=== PATIENT | female | born 1950 | race Caucasian/White ===

== ENCOUNTER 2018-10-25 20:29 | Emergency (ER) | payer MEDICARE, OTHER ==
[~2018-10-25] VITALS: Ht 162.6 cm; Wt 93.2 kg
[~2018-10-25 20:29] MED LIST: FLUC150T41 PO; LEVO750T25 PO; METO-448 PO; [UNRECOGNIZED DRUG - CODE] PO
[2018-10-25 20:31] VITALS: Ht 162.6 cm; Wt 93.2 kg
[2018-10-25] MEDS ORDERED: KETOROLAC 30 MG INJ IM STA (22:49)
[2018-10-25] MEDS ORDERED: TRAM50TA2 PO (23:05)
[2018-10-25] MEDS ORDERED: IBUP-1542 PO (23:05)
--- NOTE | 2018-10-25 23:10 | ERD ---
ER Documentation Chief Complaint Chief Complaint L WRIST PAIN X'S 1 MONTH HPI 68-year-old female presents with left wrist pain for the last month. She denies any history of trauma although daughter states that she does use an iPad frequently. Initially they stated she had not had an x-ray and that her primary doctor give her an unspecified injection. She is having pain despite ibuprofen. After initial history of present illness family did present an MRI result performed 2 weeks ago which shows a complex triangular fibrocartilage tear with associated ulnocarpal joint effusion and medial subcutaneous edema. Presents in the left wrist Velcro brace with out thumb immobilized. ROS All systems reviewed and are negative except as per history of present illness. Medications Home Meds Active Scripts Ibuprofen* (Motrin*) 600 Mg Tab, 600 MG PO Q6, #20 TAB Prov:NNEKA COLE MD 10/25/18 Tramadol HCl (Tramadol HCl) 50 Mg Tablet, 50 MG PO Q4 PRN for PAIN, #20 TAB Prov:NNEKA COLE MD 10/25/18 Reported Medications Metoprolol Tartrate* (Lopressor*) 25 Mg Tab, 25 MG PO BID, TAB 10/02/14 Fluconazole* (Fluconazole*) 150 Mg Tablet, 150 MG PO DAILY, TAB 10/02/14 Darifenacin* (Enablex*) 7.5 Mg Tab.sr.24h, 7.5 MG PO DAILY, TAB 10/02/14 Levofloxacin* (Levaquin*) 750 Mg Tablet, 750 MG PO DAILY, TAB 10/02/14 Allergies Allergies: Coded Allergies: No Known Allergy (Unverified , 10/02/14) PMhx/Soc History of Surgery: No Anesthesia Reaction: No Hx Neurological Disorder: No Hx Respiratory Disorders: No Hx Cardiac Disorders: No Hx Psychiatric Problems: No Hx Miscellaneous Medical Probl: No Hx Alcohol Use: No Hx Substance Use: No Hx Tobacco Use: No FmHx Family History: No diabetes, No coronary disease, No other Physical Exam Vitals Vital Signs Date Temp Pulse Resp B/P (MAP) Pulse Ox O2 O2 Flow FiO2 Time Delivery Rate 10/25/18 97.4 80 18 169/85 96 20:31 (113) Physical Exam Const: No acute distress Head: Atraumatic Eyes: Normal Conjunctiva ENT: Normal External Ears, Nose and Mouth. Neck: Full range of motion. No meningismus. Resp: Clear to auscultation bilaterally Cardio: Regular rate and rhythm, no murmurs Abd: Soft, non tender, non distended. Normal bowel sounds Skin: No petechiae or rashes Back: No midline or flank tenderness Ext: No cyanosis, or edema. Tender at the left thumb extensor tendon without deficits or weakness. No warmth, erythema. Neur: Awake and alert Psych: Normal Mood and Affect Results 24 hrs Current Medications Medications Dose Sig/Scott Start Time Status Last (Trade) Ordered Route PRN Stop Time Admin Dose Reason Admin Ketorolac 30 mg ONCE STAT 10/25/18 DC Tromethamine IM 22:49 10/25/18 (Toradol) 22:56 650 mg ONCE ONCE 10/25/18 Acetaminophen PO 23:30 10/25/18 (Tylenol 23:31 Tab) Tramadol 50 mg ONCE ONCE 10/25/18 HCl PO 23:30 10/25/18 (Ultram) 23:31 Procedures/MDM Patient presents with diagnosed left wrist triangular fibrocartilage tear. She has no signs or symptoms to suggest septic arthritis, ischemia, fracture, dislocation. PCP was contacted by phone who was concerned that she was having pain despite [place] although patient states that she was just taking ibuprofen. She did also is not on proper splint without the thumb immobilized. PCP is concerned she may need inpatient pain management for her wrist pain. This condition appears to be amenable to outpatient treatment with proper specialist follow-up and immobilization. Patient was placed in a left thumb spica splint was neurovascular intact after splint. She was administered Tylenol and tramadol. She will discharged home with a prescription of ibuprofen, tramadol with reinforcement of hand surgery follow-up and treatment as she does have a specialist business card in hand. Patient will be advised to follow-up with specialist as directed does return for fevers, redness, new or worsening symptoms. Departure Diagnosis: Primary Impression: Pain in wrist Laterality: left Qualified Codes: M25.532 - Pain in left wrist Condition: Stable Patient Instructions: Tendonitis, Tendon Rupture, Finger Referrals: TEE HENLEY MD Additional Instructions: See hand surgeon for evaluation of cartilage tear in left wrist as directed. For fevers, redness, new symptoms. NNEKA COLE MD October 25, 2018 23:10
[2018-10-25] MEDS ORDERED: ACETAMINOPHEN 325 MG TAB PO ONE (23:30)
[2018-10-25] MEDS ORDERED: traMADol 50 MG TAB PO ONE (23:30)
[2018-10-26 00:04] VITALS: BP 178/77; PULSE 69; RESP 20
== END 2018-10-26 00:06 | disposition home or self-care (01) ==
LOC: FTE 20:29
DX: M25.532 Pain in left wrist (principal)

== ENCOUNTER 2018-11-04 21:23 | Observation (INO) | payer MEDICARE, OTHER ==
[~2018-11-04] VITALS: Ht 157.5 cm; Wt 92.5 kg
[~2018-11-04 21:23] MED LIST changes: +IBUP-1542 PO; +TRAM50TA2 PO
[2018-11-04 21:57] VITALS: PULSE 85
[2018-11-04 22:00] VITALS: BP 149/69; RESP 18
[2018-11-04] MEDS ORDERED: traMADol-APAP 37.5-325 1 TAB PO PRN (23:00)
[2018-11-04] MEDS ORDERED: LORAZEPAM 1 MG TAB PO ONE (23:00)
[2018-11-04] MEDS ORDERED: HYDROCORTISONE 100 MG INJ IV ONE (23:00)
[2018-11-04] MEDS ORDERED: HYDROCORTISONE 250 MG INJ IV ONE (23:00)
[2018-11-04] MEDS ORDERED: NITROGLYCERIN AEROSOL (4.9 GM) SL PRN (23:00)
[2018-11-04] MEDS ORDERED: ONDANSETRON 4 MG INJ IV PRN (23:00)
[2018-11-04] MEDS ORDERED: ARIPIPRAZOLE 5 MG TAB PO ONE (23:26)
[2018-11-04] MEDS: DEXTROSE 5%-0.9% NACL 1,000 ML IV SCH (23:52)
[2018-11-05] VITALS (12 sets, daily range): BP systolic 107–128; BP diastolic 55–60; PULSE 70–90; RESP 18–20; Ht 157.5 cm; Wt 92.5 kg
[2018-11-05] MEDS: METOPROLOL 25 MG TAB PO SCH ×3 (00:31→20:37)
[2018-11-05] MEDS ORDERED: ENOXAPARIN 100 MG/ML SYG SC SCH (02:30)
[2018-11-05] MEDS ORDERED: PANTOPRAZOLE 40 MG INJ IV SCH (06:00)
[2018-11-05] MEDS: PANTOPRAZOLE (EC) 40 MG TAB PO SCH (06:16)
[2018-11-05] MEDS ORDERED: HYDROCORTISONE 100 MG INJ IV ONE (07:00)
--- NOTE | 2018-11-05 08:36 | HP ---
Date/Time of Note Date/Time of Note DATE: 11/05/18 TIME: 08:36 Assessment/Plan VTE Prophylaxis SCD contraindicated: other (on) Pharmacological prophylaxis: LMWH Lines/Catheters IV Catheter Type (from Nrsg): Peripheral IV Central line still needed: No Assessment/Plan Assessment/Plan 1.CP- r/o mi 2.Epigastric pain after metropack and mohtrine use-GI eval 3.HTN out of contyrol 4.Severe pain in left wrist area 5.Morbid obesity 6.Anxiety with panic attack 7.Claustrophobia 8, [place] of knees, hips, shoulders 9.Dyslipidemia 10.Insomnia 11.hyponatremia Result Diagram: 11/04/18 2356 11/04/18 2356 Results 24hrs Laboratory Tests Test 11/04/18 23:56 11/05/18 00:30 11/05/18 06:54 White Blood Count 13.3 #H Red Blood Count 4.59 Hemoglobin 13.3 Hematocrit 39.9 Mean Corpuscular Volume 86.9 Mean Corpuscular Hemoglobin 29.0 Mean Corpuscular 33.3 Hemoglobin Concent Red Cell Distribution Width 13.3 Platelet Count 222 Mean Platelet Volume 11.0 #H Immature Granulocytes % 0.600 H Neutrophils % 64.7 Lymphocytes % 27.0 Monocytes % 6.4 Eosinophils % 0.8 Basophils % 0.5 Nucleated Red Blood Cells % 0.0 Immature Granulocytes # 0.080 H Neutrophils # 8.6 H Lymphocytes # 3.6 H Monocytes # 0.9 Eosinophils # 0.1 Basophils # 0.1 Nucleated Red Blood Cells # 0.0 Erythrocyte Sedimentation Rate 40 H Prothrombin Time 12.3 Prothrombin Time Ratio 1.0 INR International 0.90 Normalized Ratio Sodium Level 134 L Potassium Level 4.2 Chloride Level 102 Carbon Dioxide Level 25 Anion Gap 7 Blood Urea Nitrogen 17 Creatinine 0.58 Est Glomerular Filtrat > 60 Rate mL/min Glucose Level 122 Calcium Level 8.6 Magnesium Level 2.0 Iron Level 84 Total Iron Binding Capacity 240 L Percent Iron Saturation 35 Total Bilirubin 0.6 Direct Bilirubin 0.00 Indirect Bilirubin 0.6 Aspartate Amino 43 Transf (AST/SGOT) Alanine 14 Aminotransferase (ALT/SGPT) Alkaline Phosphatase 58 Troponin I < 0.012 < 0.012 C-Reactive Protein 2.5 H Total Protein 7.2 Albumin 4.0 Globulin 3.20 Albumin/Globulin Ratio 1.25 Amylase Level 86 Urine Color YELLOW Urine Clarity SLIGHTLY CLOUDY A Urine pH 5.0 Urine Specific [place] 1.017 Urine Ketones NEGATIVE Urine Nitrite NEGATIVE Urine Bilirubin NEGATIVE Urine Urobilinogen NEGATIVE Urine Leukocyte Esterase 3+ H Urine Microscopic RBC 2 Urine Microscopic WBC 55 H Urine Hemoglobin 1+ H Urine Glucose NEGATIVE Urine Total Protein NEGATIVE HPI/ROS Admit Date/Time Admit Date/Time November 04, 2018 at 21:23 Hx of Present Illness Substernal chest pain with pressure sensation accompanied with a severe shortness of breath excessive perspiration and a sensation of dying. I received a call from that her never was in this kind of bad condition that there is not enough air to breathe. I told him to call the paramedics and we will decide then what to do. However patient family decided to bring her to the office. At the time I was not in the office he was in [facility]. Patient was brought to the hospital and I arranged direct admission with the presumptive diagnosis of chest pain rule out LA along with the planned GI work-up by calling appropriate consult physicians. ROS Subjective hx not possible: pt critical Constitutional: chills, diaphoresis, nausea, weight change; No no complaints, No improved, No disoriented, No fatigue, No febrile, No poor po, No other Eyes: No no complaints, No pain, No discharge, No redness, No visual change, No other ENT: pain, dysphagia; No no complaints, No bleeding, No congestion, No discharge, No sore throat, No other Respiratory: cough, pleuritic pain, shortness of breath; No no complaints, No pain, No sputum, No wheezing, No other Cardiovascular: chest pain, lightheadedness, orthopenea, palpitations, paroxysmal nocturnal dyspnea; No no complaints, No edema, No other Gastrointestinal: constipation, decreased appetite, flatus, nausea, passing stool; No no complaints, No pain, No blood, No diarrhea, No vomiting, No other Genitourinary: dysuria, discharge, flank pain; No no complaints, No bleeding, No hematuria, No other Musculoskeletal: back pain, bone/joint pain, neck pain, restricted range of motion Skin: No no complaints, No bruising, No erythema, No laceration, No pruritis, No rash, No skin lesions, No other Neurologic: dizziness, headache; No no complaints, No confusion, No focal-weakness, No syncope, No seizure, No other Endocrine: No no complaints, No polyuria, No polydypsia, No dry skin, No temp intolerance, No weight change, No other Lymphatic: No no complaints, No adenopathy, No tender nodes, No lymphadema, No other Psychological: anxiety, depression; No no complaints, No nl mood/affect, No confusion, No suicidal, No other Immunologic: No no complaints, No immunodeficiency, No pruritis, No rhinitis, No urticaria, No other PMH/Family/Social Past Medical History Medical History: angina, congestive heart failure, coronary artery disease, diabetes, diverticulitis, GERD, high cholesterol, hypertension, irritable bowel syndrome, urinary tract infection Medications Current Medications Ondansetron HCl (Zofran Inj) 4 mg Q6H PRN IV NAUSEA AND/OR VOMITING; Start 11/04/18 at 23:00 Dextrose/Sodium Chloride 1,000 ml @ 60 mls/hr [id number] IV Last administered on 11/04/18at 23:52; Admin Dose 60 MLS/HR; Start 11/04/18 at 23:00 Nitroglycerin (Nitroglycerin ([place])) 1 spray Q5M PRN SL ANGINA; Start 11/04/18 at 23:00 Darifenacin (Enablex) 15 mg DAILY PO ; Start 11/05/18 at 09:00; Status UNV Tramadol HCl (Ultracet) 1 tab Q6H PRN PO MODERATE PAIN LEVEL 4-6; Start 11/04/18 at 23:00 Metoprolol Tartrate (Lopressor) 25 mg BID PO Last administered on 11/05/18at 00:31; Admin Dose 25 MG; Start 11/04/18 at 23:00 Lidocaine (Lidoderm) 1 patch DAILY TD ; Start 11/05/18 at 09:00 Atorvastatin Calcium (Lipitor) 20 mg HS PO ; Start 11/05/18 at 21:00 Enalapril Maleate (Vasotec) 2.5 mg DAILY PO ; Start 11/05/18 at 09:00 Pantoprazole (Protonix Tab) 40 mg DAILY@06 PO Last administered on 11/05/18at 06:16; Admin Dose 40 MG; Start 11/05/18 at 06:00 Enoxaparin Sodium (Lovenox) 95 mg Q24H SC ; Start 11/05/18 at 09:00 Coded Allergies: No Known Allergy (Unverified , 10/02/14) Family History Significant Family History: heart disease Social History Alcohol Use: none Smoking Status: Never smoker Drug Use: none Exam/Review of Systems Vital Signs Vitals Vital Signs Date Temp Pulse Resp B/P (MAP) Pulse Ox O2 O2 Flow FiO2 Time Delivery Rate 11/05/18 70 08:21 11/05/18 98.0 20 124/58 92 07:30 (80) 11/05/18 Room Air 04:00 Intake and Output 11/04/18 11/04/18 11/05/18 1515:00 23:00 07:00 IntakeIntake Total 240 ml BalanceBalance 240 ml Exam Constitutional: alert, oriented, well developed, distress, other (Anxious tense perseverating unable to communicate smoothly due to of high intense stressful condition with multiple family members present in the exam room.) Psych: anxiety, depression, other (Patient feels that the room was very narrow and that the johnson are pressing her she was expressed with thoughts that patient there are too many people except for her own children that she is unable to tolerate the crowds she cannot stay in the close spaces like elevators or just narrow place corridors. According to her she is feeling well with bad when the space is not enough to the sensation of suffocation.); No no complaints, No nl mood/affect, No confusion, No suicidal Head: normocephalic, atraumatic Eyes: EOMI, nl lids, PERRL; No nl conjunctiva, No nl sclera, No icteric, No fundi, disc, No other ENMT: No nl external ears & nose, No nl lips & teeth, No nl nasal mucosa & septum, No mucosa pink and moist, No intubated, No tympanic membranes, No other Neck: jvd, bruits, thyromegaly, nuchal rigidity Respiratory: No clear to auscultation, No normal air movement, No congested cough, No crackles/rales, No diminished breath sounds, No intercostal retraction, No labored breathing, No respirations, No tactile fremitus, No wheezing, No other Cardiovascular: regular rate and rhythm, bruits, edema, systolic murmur; No nl pulses, No diastolic murmur, No gallop, No irregular rhythm, No jugular venous distention (JVD), No murmurs/extra sounds, No rub, No S3, No S4, No other Gastrointestinal: soft, nl liver, spleen, bowel sounds, distended, tender, other (Tenderness in the epigastric region and left upper quadrant and left lower quadrant with no rebound. No ascitic fluid was detected.); No non-tender, No ascites, No firm, No hepatomegaly, No mass, No rebound or guarding, No splenomegaly, No surgical scars Genitourinary - Female: No nl adnexae, No nl external genitalia, No CMT, No CVA tenderness, No uterus, No other Musculoskeletal: joint tenderness, muscle tone, muscle weakness; No nl extremities to inspection, No nl gait and stance, No range of motion, No spine non-tender, No swelling, No other Extremities: normal pulses, edema Neurological: SOFTWARE BUSINESS ANALYST II-XII intact, nl speech (There is pressure in his speech anxious tense perseverating.), numbness, reflexes, other (Feels numbness of extremities according to her she does not feel the tips of the fingers.); No nl mental status, No nl strength, No confused, No DTR's symmetric, No focal weakness, No lethargic, No unresponsive Skin: No nl turgor, No rash or lesions, No diaphoresis, No ecchymosis, No laceration, No puncture, No other Lymph: No nl lymph nodes, No enlarged, No nontender, No other RAMILA FLOWERS MD November 05, 2018 08:36
[2018-11-05] MEDS: LIDOCAINE 5% PATCH TD SCH (08:50)
[2018-11-05] MEDS: ENALAPRIL 2.5 MG TAB PO SCH (08:51)
[2018-11-05] MEDS: ENOXAPARIN 100 MG/ML SYG SC SCH (08:58)
[2018-11-05] MEDS ORDERED: DARIFENACIN 7.5 MG PO SCH (09:00)
[2018-11-05] MEDS: LEVOFLOXACIN 750MG/D5W (PMX) 150 ML IVPB SCH (09:45)
--- NOTE | 2018-11-05 12:13 | CONS ---
DATE OF ADMISSION: 11/04/2018 DATE OF CONSULTATION: 11/05/2018 TYPE OF CONSULTATION: Pulmonary. REASON FOR CONSULTATION: Shortness of breath. Thank you, Dr. Flowers for this consultation. HISTORY OF PRESENT ILLNESS: This is a 68-year-old lady with a several-day history of chest pain, epi gastric in nature with mild radiation to the neck, associated dyspnea but no hemoptysis, hematemesis, no recent travel history. No prior history of significant respiratory problems and in addition, she is a nonsmoker. Chest pain was intermittent in nature. Currently, the patient states this has reso lved. She appears comfortable. PAST MEDICAL HISTORY: Hyperlipidemia, hypertension. MEDICATIONS: Per chart. ALLERGIES: None. SOCIAL HISTORY: She is a current nonsmoker, no alcohol, no history of drug use. FAMILY HISTORY: Noncontributory. SYSTEMS REVIEW: A 12-point review of systems was negative other than that mentioned above. PHYSICAL EXAMINATION: GENERAL: Well-nourished, well-developed lady, comfortable at rest, no acute distress. VITAL SIGNS: Currently afebrile, pulse is 70, blood pressure 117/58, O2 saturation 93% on room air. NECK: Supple. No JVD or lymphadenopathy. CARDIAC: S1, S2, no added sounds or murmurs. CHEST: Diminished air entry bilaterally, but no rales or wheezes. ABDOMEN: Soft, nontender. No guarding or rebound. EXTREMITIES: No cyanosis, clubbing, edema. NEUROLOGIC: Grossly intact. No focal deficits. LABORATORY DATA: White count 13.3, hemoglobin 13.3, platelets of 222. Chemistry: BUN 17, creatinin e 0.58. INR 0.9. DIAGNOSTIC DATA: Chest x-ray was reviewed, shows low lung volumes, but no infiltrates or effusions. IMPRESSION AND PLAN: 1. Likely probable tracheobronchitis. 2. Chest discomfort, rule out coronary ischemia. 3. Probable obstructive sleep apnea given her obesity and body habitus. RECOMMENDATIONS: 1. Bronchodilator treatment. 2. Outpatient sleep study. 3. Outpatient pulmonary function testing. 4. Cardiology evaluation to rule out coronary ischemia. Dictated By: DONTE ALDANA/KAVITHA Conf#: [id number] DID#: [id number] CC: RAMILA FLOWERS MD;*EndCC*
[2018-11-05] MEDS: DEXTROSE 5%-0.9% NACL 1,000 ML IV SCH (16:27)
[2018-11-05] MEDS: [UNRECOGNIZED DRUG - REMARK] XX SCH (18:00)
--- NOTE | 2018-11-05 19:53 | CONS ---
Assessment/Plan Assessment/Plan Hospital Course (Demo Recall) Assessment: Atypical chest pain - appears to be in setting of anxiety and agitation related to corticosteroid use; ruled out for myocardial infarction Hypertension Recommendations: -continue outpatient metoprolol 25mg BID -no additional inpatient cardiac work up at this time -consider cardiac stress testing as outpatient Consultation Date/Type/Reason Admit Date/Time November 04, 2018 at 21:23 Type of Consult Cardiology Reason for Consultation chest pain Date/Time of Note DATE: 11/05/18 TIME: 19:48 Hx of Present Illness The patient is a 68 year-old female who presented with five days of intermittent chest pressure, epigastric burning, shortness of breath, and agitation. She recently saw an orthopedic surgeon for right wrist pain and was diagnosed with tenonitis. She received an injection and was started on a course of methylprednisolone. Her presenting symptoms started shortly after taking the steroids. EKG showed sinus rhythm with nonspecific T wave changes. Troponins have been negative x 3. She denies recurrent chest pain since hospital admission. 14 point review of systems negative other than per HPI. Past Medical History Medical History: hypertension Home Meds Active Scripts Ibuprofen* (Motrin*) 600 Mg Tab, 600 MG PO Q6, #20 TAB Prov:NNEKA COLE MD 10/25/18 Tramadol HCl (Tramadol HCl) 50 Mg Tablet, 50 MG PO Q4 PRN for PAIN, #20 TAB Prov:NNEKA COLE MD 10/25/18 Reported Medications Metoprolol Tartrate* (Lopressor*) 25 Mg Tab, 25 MG PO BID, TAB 10/02/14 Fluconazole* (Fluconazole*) 150 Mg Tablet, 150 MG PO DAILY, TAB 10/02/14 Darifenacin* (Enablex*) 7.5 Mg Tab.sr.24h, 7.5 MG PO DAILY, TAB 10/02/14 Levofloxacin* (Levaquin*) 750 Mg Tablet, 750 MG PO DAILY, TAB 10/02/14 Medications Current Medications Ondansetron HCl (Zofran Inj) 4 mg Q6H PRN IV NAUSEA AND/OR VOMITING; Start 11/04/18 at 23:00 Dextrose/Sodium Chloride 1,000 ml @ 60 mls/hr [id number] IV Last administered on 11/05/18at 16:27; Admin Dose 60 MLS/HR; Start 11/04/18 at 23:00 Nitroglycerin (Nitroglycerin ([place])) 1 spray Q5M PRN SL ANGINA; Start 11/04/18 at 23:00 Darifenacin (Enablex) 15 mg DAILY PO ; Start 11/05/18 at 09:00; Status UNV Tramadol HCl (Ultracet) 1 tab Q6H PRN PO MODERATE PAIN LEVEL 4-6; Start 11/04/18 at 23:00 Metoprolol Tartrate (Lopressor) 25 mg BID PO Last administered on 11/05/18 08:51; Admin Dose 25 MG; Start 11/04/18 at 23:00 Lidocaine (Lidoderm) 1 patch DAILY TD Last administered on 11/05/18 08:50; Admin Dose 1 PATCH; Start 11/05/18 at 09:00 Atorvastatin Calcium (Lipitor) 20 mg HS PO ; Start 11/05/18 at 21:00 Enalapril Maleate (Vasotec) 2.5 mg DAILY PO Last administered on 11/05/18 08:51; Admin Dose 2.5 MG; Start 11/05/18 at 09:00 Pantoprazole (Protonix Tab) 40 mg DAILY@06 PO Last administered on 11/05/18 06:16; Admin Dose 40 MG; Start 11/05/18 at 06:00 Enoxaparin Sodium (Lovenox) 95 mg Q24H SC Last administered on 11/05/18 08:58; Admin Dose 95 MG; Start 11/05/18 at 09:00 Levofloxacin/ Dextrose 150 ml @ 100 mls/hr Q24H IVPB Last administered on 11/05/18at 09:45; Admin Dose 100 MLS/HR; Start 11/05/18 at 09:00; Stop 11/07/18 at 08:00 Miscellaneous Information (*Order Clarification Bulletin) DARIFENACIN (XR) 7.5 MG TAB: PLE... Q8H XX Last administered on 11/05/18 18:00; Admin Dose 1 EA; Start 11/05/18 at 18:00 Allergies: Coded Allergies: No Known Allergy (Unverified , 10/02/14) Past Surgical History Past Surgical Hx: no surgical history Family History Significant Family History: no pertinent family hx Social History Smoking Status: Never smoker Exam/Review of Systems Vital Signs Vitals Vital Signs Date Temp Pulse Resp B/P (MAP) Pulse Ox O2 O2 Flow FiO2 Time Delivery Rate 11/05/18 73 16:18 11/05/18 98.0 18 128/60 93 15:27 (82) 11/05/18 Room Air 04:00 Intake and Output 11/04/18 11/04/18 11/05/18 1515:00 23:00 07:00 IntakeIntake Total 240 ml BalanceBalance 240 ml Exam Constitutional: alert, well developed Psych: no complaints, nl mood/affect Head: normocephalic, atraumatic Eyes: nl conjunctiva, nl lids ENMT: nl external ears & nose, nl nasal mucosa & septum Neck: supple, non-tender Respiratory: clear to auscultation Cardiovascular: regular rate and rhythm Gastrointestinal: soft, non-tender Musculoskeletal: nl extremities to inspection Extremities: No cyanosis, No clubbing, No edema Neurological: nl mental status, nl speech Labs Result Diagram: 11/04/18 2356 11/04/18 2356 Results 24hrs Laboratory Tests Test 11/04/18 23:56 11/05/18 00:30 11/05/18 06:54 11/05/18 12:24 White Blood Count 13.3 #H Red Blood Count 4.59 Hemoglobin 13.3 Hematocrit 39.9 Mean Corpuscular 86.9 Volume Mean Corpuscular 29.0 Hemoglobin Mean Corpuscular 33.3 Hemoglobin Concen t Red Cell 13.3 Distribution Width Platelet Count 222 Mean Platelet 11.0 #H Volume Immature 0.600 H Granulocytes % Neutrophils % 64.7 Lymphocytes % 27.0 Monocytes % 6.4 Eosinophils % 0.8 Basophils % 0.5 Nucleated Red 0.0 Blood Cells % Immature 0.080 H Granulocytes # Neutrophils # 8.6 H Lymphocytes # 3.6 H Monocytes # 0.9 Eosinophils # 0.1 Basophils # 0.1 Nucleated Red 0.0 Blood Cells # Erythrocyte 40 H Sedimentation Rate Prothrombin Time 12.3 Prothrombin Time 1.0 Ratio INR International 0.90 Normalized Ratio Sodium Level 134 L Potassium Level 4.2 Chloride Level 102 Carbon Dioxide 25 Level Anion Gap 7 Blood Urea 17 Nitrogen Creatinine 0.58 Est Glomerular > 60 Filtrat Rate mL/min Glucose Level 122 Calcium Level 8.6 Magnesium Level 2.0 Iron Level 84 Total Iron 240 L Binding Capacity Percent Iron 35 Saturation Total Bilirubin 0.6 Direct Bilirubin 0.00 Indirect 0.6 Bilirubin Aspartate Amino 43 Transf (AST/SGOT) Alanine 14 Aminotransferase (ALT/SGPT) Alkaline 58 Phosphatase Troponin I < 0.012 < 0.012 < 0.012 C-Reactive 2.5 H Protein Total Protein 7.2 Albumin 4.0 Globulin 3.20 Albumin/Globulin 1.25 Ratio Amylase Level 86 Urine Color YELLOW Urine Clarity SLIGHTLY CLOUDY A Urine pH 5.0 Urine Specific 1.017 [place] Urine Ketones NEGATIVE Urine Nitrite NEGATIVE Urine Bilirubin NEGATIVE Urine NEGATIVE Urobilinogen Urine Leukocyte 3+ H Esterase Urine Microscopic 2 RBC Urine Microscopic 55 H WBC Urine Hemoglobin 1+ H Urine Glucose NEGATIVE Urine Total NEGATIVE Protein Medications Medications Current Medications Ondansetron HCl (Zofran Inj) 4 mg Q6H PRN IV NAUSEA AND/OR VOMITING; Start 11/04/18 at 23:00 Dextrose/Sodium Chloride 1,000 ml @ 60 mls/hr [id number] IV Last administered on 11/05/18at 16:27; Admin Dose 60 MLS/HR; Start 11/04/18 at 23:00 Nitroglycerin (Nitroglycerin ([place])) 1 spray Q5M PRN SL ANGINA; Start 11/04/18 at 23:00 Darifenacin (Enablex) 15 mg DAILY PO ; Start 11/05/18 at 09:00; Status UNV Tramadol HCl (Ultracet) 1 tab Q6H PRN PO MODERATE PAIN LEVEL 4-6; Start 11/04/18 at 23:00 Metoprolol Tartrate (Lopressor) 25 mg BID PO Last administered on 11/05/18at 08:51; Admin Dose 25 MG; Start 11/04/18 at 23:00 Lidocaine (Lidoderm) 1 patch DAILY TD Last administered on 11/05/18at 08:50; Admin Dose 1 PATCH; Start 11/05/18 at 09:00 Atorvastatin Calcium (Lipitor) 20 mg HS PO ; Start 11/05/18 at 21:00 Enalapril Maleate (Vasotec) 2.5 mg DAILY PO Last administered on 11/05/18at 08:51; Admin Dose 2.5 MG; Start 11/05/18 at 09:00 Pantoprazole (Protonix Tab) 40 mg DAILY@06 PO Last administered on 11/05/18at 06:16; Admin Dose 40 MG; Start 11/05/18 at 06:00 Enoxaparin Sodium (Lovenox) 95 mg Q24H SC Last administered on 11/05/18at 08:58; Admin Dose 95 MG; Start 11/05/18 at 09:00 Levofloxacin/ Dextrose 150 ml @ 100 mls/hr Q24H IVPB Last administered on at 09:45; Admin Dose 100 MLS/HR; Start 11/05/18 at 09:00; Stop 11/07/18 at 08:00 Miscellaneous Information (*Order Clarification Bulletin) DARIFENACIN (XR) 7.5 MG TAB: PLE... Q8H XX Last administered on 11/05/18at 18:00; Admin Dose 1 EA; Start 11/05/18 at 18:00 OLIVIER DELA CRUZ MD November 05, 2018 19:53
[2018-11-05] MEDS ORDERED: ATORVASTATIN 20 MG TAB PO SCH (21:00)
[2018-11-06] VITALS (8 sets, daily range): BP systolic 112–142; BP diastolic 58–67; PULSE 66–84; RESP 18–20
[2018-11-06] MEDS: [UNRECOGNIZED DRUG - REMARK] XX SCH ×2 (02:00→09:03)
[2018-11-06] MEDS: PANTOPRAZOLE (EC) 40 MG TAB PO SCH (05:59)
[2018-11-06] MEDS: DEXTROSE 5%-0.9% NACL 1,000 ML IV SCH (08:20)
[2018-11-06] MEDS: LIDOCAINE 5% PATCH TD SCH (08:45)
[2018-11-06] MEDS: ENALAPRIL 2.5 MG TAB PO SCH (08:46)
[2018-11-06] MEDS: LEVOFLOXACIN 750MG/D5W (PMX) 150 ML IVPB SCH (08:46)
[2018-11-06] MEDS: METOPROLOL 25 MG TAB PO SCH (08:47)
[2018-11-06] MEDS: ENOXAPARIN 100 MG/ML SYG SC SCH (09:02)
[2018-11-06] MEDS ORDERED: AL HYDROX/MG HYDROX/SIMETH 30 ML CUP PO PRN (10:30)
--- NOTE | 2018-11-06 11:17 | CONS ---
Assessment/Plan Assessment/Plan Hospital Course (Demo Recall) Assessment: Atypical chest pain - appears to be in setting of anxiety and agitation related to corticosteroid use, ? gastrointestinal component; ruled out for myocardial infarction Hypertension Recommendations: -continue outpatient metoprolol 25mg BID -no additional inpatient cardiac work up at this time -consider cardiac stress testing as outpatient Consultation Date/Type/Reason Admit Date/Time November 04, 2018 at 21:23 Initial Consult Date Type of Consult Cardiology Date/Time of Note DATE: 11/06/18 TIME: 11:16 24 HR Interval Summary Free Text/Dictation No acute events. Complaining of burning sensation in the chest, possibly related to eating. Detailed Summary Additional Comments 14 point review of systems without changes. Exam/Review of Systems Vital Signs Vitals Vital Signs Date Temp Pulse Resp B/P (MAP) Pulse Ox O2 O2 Flow FiO2 Time Delivery Rate 11/06/18 72 08:00 11/06/18 98.2 18 142/67 96 07:24 (92) 11/05/18 Room Air 04:00 Intake and Output 11/05/18 11/05/18 11/06/18 1515:00 23:00 07:00 IntakeIntake Total 600 ml 1300 ml OutputOutput Total 650 ml BalanceBalance -50 ml 1300 ml Exam Exam Constitutional: alert, well developed Psych: no complaints, nl mood/affect Head: normocephalic, atraumatic Eyes: nl conjunctiva, nl lids ENMT: nl external ears & nose, nl nasal mucosa & septum Neck: supple, non-tender Respiratory: clear to auscultation Cardiovascular: regular rate and rhythm Gastrointestinal: soft, non-tender Musculoskeletal: nl extremities to inspection Extremities: No cyanosis, No clubbing, No edema Neurological: nl mental status, nl speech Labs Result Diagram: 11/04/18 2356 11/04/18 2356 Results 24hrs Laboratory Tests Test 11/05/18 12:24 Troponin I < 0.012 Medications Medications Current Medications Ondansetron HCl (Zofran Inj) 4 mg Q6H PRN IV NAUSEA AND/OR VOMITING; Start 11/04/18 at 23:00 Dextrose/Sodium Chloride 1,000 ml @ 60 mls/hr [id number] IV Last administered on 11/05/18at 16:27; Admin Dose 60 MLS/HR; Start 11/04/18 at 23:00 Nitroglycerin (Nitroglycerin ([place])) 1 spray Q5M PRN SL ANGINA; Start 11/04/18 at 23:00 Darifenacin (Enablex) 15 mg DAILY PO ; Start 11/05/18 at 09:00; Status UNV Tramadol HCl (Ultracet) 1 tab Q6H PRN PO MODERATE PAIN LEVEL 4-6; Start 11/04/18 at 23:00 Metoprolol Tartrate (Lopressor) 25 mg BID PO Last administered on 11/06/18 08:47; Admin Dose 25 MG; Start 11/04/18 at 23:00 Lidocaine (Lidoderm) 1 patch DAILY TD Last administered on 11/06/18 08:45; Admin Dose 1 PATCH; Start 11/05/18 at 09:00 Atorvastatin Calcium (Lipitor) 20 mg HS PO Last administered on 11/05/18 20:37; Admin Dose 20 MG; Start 11/05/18 at 21:00 Enalapril Maleate (Vasotec) 2.5 mg DAILY PO Last administered on 11/06/18 08:46; Admin Dose 2.5 MG; Start 11/05/18 at 09:00 Pantoprazole (Protonix Tab) 40 mg DAILY@06 PO Last administered on 11/06/18 05:59; Admin Dose 40 MG; Start 11/05/18 at 06:00 Enoxaparin Sodium (Lovenox) 95 mg Q24H SC Last administered on 11/06/18 09:02; Admin Dose 95 MG; Start 11/05/18 at 09:00 Levofloxacin/ Dextrose 150 ml @ 100 mls/hr Q24H IVPB Last administered on 11/06/18 08:46; Admin Dose 100 MLS/HR; Start 11/05/18 at 09:00; Stop 11/07/18 at 08:00 Miscellaneous Information (*Order Clarification Bulletin) DARIFENACIN (XR) 7.5 MG TAB: PLE... Q8H XX Last administered on 11/05/18 18:00; Admin Dose 1 EA; Start 11/05/18 at 18:00 Al Hydrox/Mg Hydrox/Simethicone (Mag-Al Plus) 30 ml Q6H PRN PO GASTROINTESTINAL UPSET Last administered on 11/06/18 10:59; Admin Dose 30 ML; Start 11/06/18 at 10:30 OLIVIER DELA CRUZ MD November 06, 2018 11:17
--- NOTE | 2018-11-06 11:41 | CONS ---
Consult Date/Type/Reason Admit Date/Time November 04, 2018 at 21:23 Initial Consult Date Type of Consult Pulmonary Date/Time of Note DATE: 11/06/18 TIME: 11:40 Subjective Breathing better today no respiratory distress. Objective Vital Signs Date Temp Pulse Resp B/P (MAP) Pulse Ox O2 O2 Flow FiO2 Time Delivery Rate 11/06/18 97.7 67 18 130/63 96 11:37 (85) 11/05/18 Room Air 04:00 Intake and Output 11/05/18 11/05/18 11/06/18 1515:00 23:00 07:00 IntakeIntake Total 600 ml 1300 ml OutputOutput Total 650 ml BalanceBalance -50 ml 1300 ml Exam GENERAL: Well-nourished well-developed lady comfortable at rest no acute distress VITAL SIGNS: per chart NECK: Supple. No JVD or lymphadenopathy. CARDIAC EXAM: S1, S2. No added sounds or murmurs. CHEST: clear bilaterally, No added sounds, rales or wheezes ABDOMEN: Soft, nontender. No guarding or rebound. EXTREMITIES: No cyanosis, clubbing or edema. NEUROLOGIC: Generalized weakness. No focal deficits. Results/Medications Result Diagram: 11/04/18 2356 11/04/18 2356 Results 24 hrs Laboratory Tests Test 11/05/18 12:24 Troponin I < 0.012 Medications Current Medications Ondansetron HCl (Zofran Inj) 4 mg Q6H PRN IV NAUSEA AND/OR VOMITING; Start 11/04/18 at 23:00 Dextrose/Sodium Chloride 1,000 ml @ 60 mls/hr [id number] IV Last administered on 11/05/18at 16:27; Admin Dose 60 MLS/HR; Start 11/04/18 at 23:00 Nitroglycerin (Nitroglycerin ([place])) 1 spray Q5M PRN SL ANGINA; Start 11/04/18 at 23:00 Darifenacin (Enablex) 15 mg DAILY PO ; Start 11/05/18 at 09:00; Status UNV Tramadol HCl (Ultracet) 1 tab Q6H PRN PO MODERATE PAIN LEVEL 4-6; Start 11/04/18 at 23:00 Metoprolol Tartrate (Lopressor) 25 mg BID PO Last administered on 11/06/18at 08:47; Admin Dose 25 MG; Start 11/04/18 at 23:00 Lidocaine (Lidoderm) 1 patch DAILY TD Last administered on 11/06/18 08:45; Admin Dose 1 PATCH; Start 11/05/18 at 09:00 Atorvastatin Calcium (Lipitor) 20 mg HS PO Last administered on 11/05/18 20:37; Admin Dose 20 MG; Start 11/05/18 at 21:00 Enalapril Maleate (Vasotec) 2.5 mg DAILY PO Last administered on 11/06/18 08:4 6; Admin Dose 2.5 MG; Start 11/05/18 at 09:00 Pantoprazole (Protonix Tab) 40 mg DAILY@06 PO Last administered on 11/06/18 05:59; Admin Dose 40 MG; Start 11/05/18 at 06:00 Enoxaparin Sodium (Lovenox) 95 mg Q24H SC Last administered on 11/06/18 09:02; Admin Dose 95 MG; Start 11/05/18 at 09:00 Levofloxacin/ Dextrose 150 ml @ 100 mls/hr Q24H IVPB Last administered on 11/06/18 08:46; Admin Dose 100 MLS/HR; Start 11/05/18 at 09:00; Stop 11/07/18 at 08:00 Miscellaneous Information (*Order Clarification Bulletin) DARIFENACIN (XR) 7.5 MG TAB: PLE... Q8H XX Last administered on 11/05/18 18:00; Admin Dose 1 EA; Start 11/05/18 at 18:00 Al Hydrox/Mg Hydrox/Simethicone (Mag-Al Plus) 30 ml Q6H PRN PO GASTROINTESTINAL UPSET Last administered on 11/06/18at 10:59; Admin Dose 30 ML; Start 11/06/18 at 10:30 Assessment/Plan Hospital Course (Demo Recall) IMPRESSION AND PLAN: 1. Likely probable tracheobronchitis. 2. Chest discomfort, rule out coronary ischemia. 3. Probable obstructive sleep apnea given her obesity and body habitus. RECOMMENDATIONS: 1. Bronchodilator treatment. 2. Outpatient sleep study. 3. Outpatient pulmonary function testing. 4. Cardiology evaluation to rule out coronary ischemia. DC planning okay from pulmonary standpoint DONTE STEVENSON MD, [facility] November 06, 2018 11:41
--- NOTE | 2018-11-06 22:50 | PDOCDIS ---
Discharge Instructions DIAGNOSIS Discharge Diagnosis 1.CP- mi was ruled out. Due to AMA leaving the hospital exam was not completed. 2.Epigastric pain after metropack and mohtrine use-GI eval-refused to work-up left AGAINST MEDICAL ADVICE. 3.HTN out of control 4.Severe pain in left wrist area-persists; Lidoderm patch helped about 30%. 5.Morbid obesity 6.Anxiety with panic attack 7.Claustrophobia 8, Rigo of knees, hips, shoulders 9.Dyslipidemia 10.Insomnia 11.hyponatremia CONDITION [id number] Patient Condition: [id number] Guarded HOME CARE INSTRUCTIONS: [id number] Diet Instructions: [id number] Reduced Sodium ACTIVITY: [id number] Activity Restrictions: [id number] Slowly Increase Activity [id number] Bathing Restrictions: [id number] Shower FOLLOW UP/APPOINTMENTS Follow-up Plan To be seen by talk show host in 3 days. To see me in 2 days. Family took patient home AGAINST MEDICAL ADVICE. SCHOOL/WORK RELEASE May return to School/Work with: noRAMILA MONTEIRO MD November 06, 2018 22:50
--- NOTE | 2018-11-06 22:55 | DS ---
Date/Time of Note Date/Time of Note DATE: 11/06/18 TIME: 22:50 Discharge Summary Admission/Discharge Info Admit Date/Time November 04, 2018 at 21:23 Discharge Date/Time November 06, 2018 at 16:09 Discharge Diagnosis 1.CP- mi was ruled out. Due to AMA leaving the hospital exam was not completed. 2.Epigastric pain after metropack and mohtrine use-GI eval-refused to work-up left AGAINST MEDICAL ADVICE. 3.HTN out of control 4.Severe pain in left wrist area-persists; Lidoderm patch helped about 30%. 5.Morbid obesity 6.Anxiety with panic attack 7.Claustrophobia 8, Rigo of knees, hips, shoulders 9.Dyslipidemia 10.Insomnia 11.hyponatremia Patient Condition: Guarded Hospital Course The patient was admitted with severe pain in substernal mid and lower area along with epigastric pain being unable to take p.o. medications. The patient had lef t wrist pain which was severe but not controlled and consultation to the hand specialist is pending. She was seen by orthopedic doctor who ordered Medrol Dosepak according to the who carried the medications along with Motrin 600 3 times daily. Patient started to take this medication for the last 3 days after which the symptoms got worse and pain got intolerable according to the the patient and the family. More detailed questioning revealed that we will bring him to the hospital when they attempted to admit her and direct admission manner of his anxiety and panic attack which was obviously present in her problem list she was taken to the room 19 where she felt that johnson are pressing her she was transferred to the room 18 of the fifth floor [facility] when I enter the room there was at least 15 people in the room trying to comfort her. There was no doubt in my mind that she had anxiety and panic attack along with the claustrophobia. Detailed questioning confirmed that suspicion. Her primary care physician this is the first time I entertain the diagnosis. Ms. coronary artery disease along with the esophageal and gastric problems along with pancreatitis I initiated a GI and cardiology work-up. I received a call from the son and has been the patient that she wants to go home. With explanation that the work-up is not completed did not affect on their decision-making. Was discharged AMA. Also asked Dr. Ann orthopedic surgeon to evaluate her MRI results of the wrist along with expert opinion to plan further work-up of of left wrist pain which is intolerable despite of a steroid injections x2 as an outpatient. Mild hyponatremia was discussed. Home Meds Active Scripts Ibuprofen* (Motrin*) 600 Mg Tab, 600 MG PO Q6, #20 TAB Prov:NNEKA COLE MD 10/25/18 Tramadol HCl (Tramadol HCl) 50 Mg Tablet, 50 MG PO Q4 PRN for PAIN, #20 TAB Prov:NNEKA COLE MD 10/25/18 Reported Medications Metoprolol Tartrate* (Lopressor*) 25 Mg Tab, 25 MG PO BID, TAB 10/02/14 Fluconazole* (Fluconazole*) 150 Mg Tablet, 150 MG PO DAILY, TAB 10/02/14 Darifenacin* (Enablex*) 7.5 Mg Tab.sr.24h, 7.5 MG PO DAILY, TAB 10/02/14 Levofloxacin* (Levaquin*) 750 Mg Tablet, 750 MG PO DAILY, TAB 10/02/14 Follow-up Plan To be seen by chief librarian extension department in 3 days. To see me in 2 days. Family took patient home AGAINST MEDICAL ADVICE. Primary Care Provider Boy June MD Time spent on discharge: > 30 minutes BOY JUNE MD November 06, 2018 22:55
== END 2018-11-06 16:09 | disposition left against medical advice (07) ==
LOC: INTOOBSV 21:23 → TEL 21:23
PROVIDERS: ADMIT Family Medicine; ATTEND Family Medicine
DX: R07.9 Chest pain, unspecified (principal); R10.13 Epigastric pain; I10 Essential (primary) hypertension; M25.532 Pain in left wrist; E66.01 Morbid (severe) obesity due to excess calories; Z68.37 Body mass index [BMI] 37.0-37.9, adult; F41.0 Panic disorder [episodic paroxysmal anxiety]; F40.240 Claustrophobia; E78.5 Hyperlipidemia, unspecified; G47.00 Insomnia, unspecified; E87.1 Hypo-osmolality and hyponatremia; M17.0 Bilateral primary osteoarthritis of knee; M16.0 Bilateral primary osteoarthritis of hip; M19.012 Primary osteoarthritis, left shoulder; M19.011 Primary osteoarthritis, right shoulder
CPT/HCPCS: 71046; 80053; 81001; 82150; 83540; 83735; 84484; 85025; 85610; 85651; 86140; 87081; 93005; G0378; J1650; J1720; J1956; J7042; 99217

== ENCOUNTER → 2018-12-27 | Outpatient (CLI) | payer MEDICARE, OTHER | END | disposition home or self-care (01) | LOC: LAB 12:22 | PROVIDERS: ATTEND Internal Medicine | DX: R07.9 Chest pain, unspecified (principal) | CPT/HCPCS: 80048 ==

== ENCOUNTER → 2019-01-06 | Outpatient (CLI) | payer MEDICARE, OTHER | END | disposition home or self-care (01) | LOC: C/S 08:39 | PROVIDERS: ATTEND Internal Medicine | DX: R07.9 Chest pain, unspecified (principal) ==